=== PATIENT | male | born 1935 | race Caucasian/White ===

== ENCOUNTER 2024-06-14 13:06 | Outpatient (CLI) | payer MEDICARE, BC | END 2024-06-14 13:07 | disposition home or self-care (01) | LOC: CSHMRI 13:06 | PROVIDERS: ATTEND Nurse Practitioner Family | DX: M50.00 Cervical disc disorder with myelopathy, unspecified cervical region (principal); I63.9 Cerebral infarction, unspecified; R26.89 Other abnormalities of gait and mobility; G89.29 Other chronic pain; M48.02 Spinal stenosis, cervical region | CPT/HCPCS: 72141 ==

== ENCOUNTER 2024-11-23 19:59 | Emergency (ER) | payer MEDICARE, BC ==
[2024-11-23 21:05] LABS: Troponin I Less than 0.010 ng/mL (< 0.028)
[2024-11-23] MEDS ORDERED: Sodium Polystyrene Sulfonate 15 GM (60 mL) BOT ONE (22:53)
[2024-11-23] MEDS ORDERED: Furosemide 40 MG (4 mL) VIAL ONE (22:53)
== END 2024-11-24 01:17 | disposition short-term general hospital (02) ==
LOC: CSHERS 19:59
DX: I13.0 Hypertensive heart and chronic kidney disease with heart failure and stage 1 through stage 4 chronic kidney disease, or unspecified chronic kidney disease (principal); I50.9 Heart failure, unspecified; N18.32 Chronic kidney disease, stage 3b; R09.02 Hypoxemia; E87.5 Hyperkalemia; N28.9 Disorder of kidney and ureter, unspecified; E03.9 Hypothyroidism, unspecified; Z86.73 Personal history of transient ischemic attack (TIA), and cerebral infarction without residual deficits; Z79.01 Long term (current) use of anticoagulants; Z79.890 Hormone replacement therapy; Z79.899 Other long term (current) drug therapy; Z95.1 Presence of aortocoronary bypass graft
CPT/HCPCS: 71045; 84484; 93005; J1940; 36415; 80053; 83880; 85025; 85379